=== PATIENT | female | born 1975 | race Two or more races ===

== ENCOUNTER 2018-04-15 20:03 | Emergency (ER) | payer MEDICAID ==
[~2018-04-15] VITALS: Ht 154.9 cm; Wt 78.9 kg
[2018-04-15 20:11] VITALS: BP 108/63
[2018-04-15] MEDS ORDERED: IBUPROFEN 600 MG TABLET PO ONE ×2 (21:25→21:30)
== END 2018-04-15 21:29 | disposition home or self-care (01) ==
LOC: ER 20:05
DX: H61.23 Impacted cerumen, bilateral (principal)
CPT/HCPCS: 69209; 99282; A4606; Z7610

== ENCOUNTER 2021-06-19 11:22 | Emergency (ER) | payer MEDICAID ==
[~2021-06-19] VITALS: Ht 157.5 cm; Wt 81.6 kg
--- NOTE | 2021-06-19 11:29 | NUR ---
BIB SELF C/O L SIDED HEADACHE X 3 DAYS. "ITS LIKE PULSATING"
[2021-06-19] MEDS ORDERED: KETOROLAC TROMETHAMINE 15 MG/ML VIAL ONE (11:50)
[2021-06-19] MEDS ORDERED: METOCLOPRAMIDE HCL 10 MG/2 ML VIAL ONE (11:50)
[2021-06-19] MEDS ORDERED: diphenhydrAMINE HCL 50 MG/ML VIAL ONE (11:50)
[2021-06-19] MEDS ORDERED: ACETAMINOPHEN ES 500 MG TABLET ONE (11:51)
[2021-06-19] MEDS ORDERED: ACETAMINOPHEN ES 500 MG TABLET PO ONE (12:00)
[2021-06-19] MEDS ORDERED: METOCLOPRAMIDE HCL 10 MG/2 ML VIAL IV ONE (12:00)
[2021-06-19] MEDS ORDERED: diphenhydrAMINE HCL 50 MG/ML VIAL IV ONE (12:00)
[2021-06-19] MEDS ORDERED: IV NS 0.9% 1,000 ML BAG IV ONE (12:00)
[2021-06-19] MEDS ORDERED: KETOROLAC TROMETHAMINE INJ 30 MG/ML VIAL IV ONE (12:00)
[2021-06-19] MEDS ORDERED: IBUP-1955 PO (13:58)
--- NOTE | 2021-06-19 14:05 | NUR ---
Patient discharged to home in stable condition. Written and verbal after care instructions given. Patient verbalizes understanding of instruction.IV removed. Catheter intact and site benign. Pressure and 4x4 applied to site. No bleeding noted.
[2021-06-19 14:07] VITALS: BP 123/67
== END 2021-06-19 14:07 | disposition home or self-care (01) ==
LOC: ER 11:29
DX: R51.9 Headache, unspecified (principal)
CPT/HCPCS: 96361; 96374; 96375; 99284; J1200; J1885; J2765; J7030

== ENCOUNTER 2023-02-09 12:15 | Emergency (ER) | payer MEDICAID ==
[~2023-02-09] VITALS: Ht 157.5 cm; Wt 83.0 kg
[~2023-02-09 12:15] MED LIST: IBUP-1955 PO
[2023-02-09 13:22] LABS: APPEARANCE,URINE SLIGHTLY CLOUDY (CLEAR); BILIRUBIN,URINE 1+ (NEGATIVE); BLOOD, URINE 3+ Ery/uL (NEGATIVE); COLOR,URINE DARK YELLOW (YELLOW); KETONES,URINE 1+ mg/dL (NEGATIVE); LEUKOCYTE ESTERASE ,URINE TRACE (NEGATIVE); NITRITE, URINE POSITIVE (NEGATIVE); PH,URINE 6.5 (5.0-8.0); PROTEIN,URINE 2+ mg/dl (NEGATIVE); UGLUCOSE TRACE mg/dL (NEGATIVE)
[2023-02-09] MEDS ORDERED: CIPR-262 PO (13:28)
[2023-02-09] MEDS ORDERED: IBUP-1957 PO (13:28)
[2023-02-09] MEDS ORDERED: NEOM10DR11 RIGHT EAR (13:28)
[2023-02-09 13:39] VITALS: BP 122/68; TEMP 98.3; O2SAT 100
[2023-02-09 13:52] LABS: ADD URINE CULTURE YES; BACTERIA,URINE 1+ /HPF (None Seen); MUCUS,URINE Moderate /LPF (None Seen)
== END 2023-02-09 13:40 | disposition home or self-care (01) ==
LOC: ER 12:21
DX: N39.0 Urinary tract infection, site not specified (principal); H61.21 Impacted cerumen, right ear
CPT/HCPCS: 81001

== ENCOUNTER 2024-04-28 12:47 | Emergency (ER) | payer MEDICAID ==
[~2024-04-28] VITALS: Ht 154.9 cm; Wt 81.6 kg
[~2024-04-28 12:47] MED LIST changes: +CIPR-262 PO; +IBUP-1957 PO; +NEOM10DR11 RIGHT EAR
[2024-04-28] MEDS ORDERED: KETOROLAC TROMETHAMINE 15 MG/ML VIAL ONE (14:30)
[2024-04-28] MEDS: IV NS 0.9% 1,000 ML BAG IV ONE (15:06)
[2024-04-28] MEDS: KETOROLAC TROMETHAMINE 15 MG/ML VIAL IV ONE (15:07)
[2024-04-28] MEDS ORDERED: ONDANSETRON HCL/PF 4 MG/2 ML VIAL ONE (15:32)
[2024-04-28] MEDS ORDERED: MORPHINE SULFATE INJ 4 MG/ML DISP.SYRIN ONE ×2 (15:32→18:10)
[2024-04-28 15:33] LABS: APPEARANCE,URINE Clear (CLEAR); BILIRUBIN,URINE SMALL (NEGATIVE); BLOOD, URINE Trace-intact Ery/uL (NEGATIVE); COLOR,URINE YELLOW (YELLOW); KETONES,URINE 15 mg/dL (NEGATIVE); LEUKOCYTE ESTERASE ,URINE Trace (NEGATIVE); NITRITE, URINE Negative (NEGATIVE); PROTEIN,URINE 30 mg/dl (NEGATIVE); UGLUCOSE Negative (NEGATIVE)
[2024-04-28] MEDS: MORPHINE SULFATE INJ 2 MG/ML DISP.SYRIN IV ONE ×2 (15:49→18:26)
[2024-04-28] MEDS: ONDANSETRON HCL/PF - ER 4 MG/2 ML VIAL IV ONE (15:50)
[2024-04-28 15:56] LABS: BASOPHILS % (AUTO) 0.2 % (0.0-2.0); EOSINOPHILS % (AUTO) 0.1 % (0.0-6.0); HEMATOCRIT 32 % (33-45); LYMPHOCYTES # (AUTO) 0.8 K/uL (0.8-4.8); LYMPHOCYTES % (AUTO) 7.4 % (20.0-44.0); MEAN CORPUSCULAR HEMOGLOBIN 24 PG (26.0-33.0); MEAN CORPUSCULAR HGB CONC 31 g/dl (31.0-36.0); MEAN CORPUSCULAR VOLUME 75 fL (82-100); MONOCYTES # (AUTO) 0.6 K/uL (0.1-1.30); MONOCYTES % (AUTO) 5.7 % (2.0-12.0); NEUTROPHILS # (AUTO) 9.8 K/uL (1.8-8.9); NEUTROPHILS % (AUTO) 86.6 % (43.0-81.0); PLATELET COUNT (AUTO) 273 K/uL (150-450); RED BLOOD CELL COUNT(AUTO) 4.25 MIL/uL (4.0-5.2); RED CELL DISTRIBUTION WIDTH 20.2 % (11.5-15.0); WHITE BLOOD COUNT (AUTO) 11.3 K/uL (4.3-11.0)
[2024-04-28 16:09] LABS: CALCIUM, SERUM 8.8 mg/dL (8.5-10.1); CREATININE 0.6 mg/dL (0.6-1.3); POTASSIUM 3.8 mmol/L (3.5-5.1)
[2024-04-28 16:17] LABS: LACTIC ACID 0.8 mmol/L (0.4-2.0)
[2024-04-28 16:24] LABS: ALBUMIN 3.6 g/dL (3.4-5.0); BILIRUBIN,DIRECT 0.1 mg/dL (0.0-0.2); BILIRUBIN,TOTAL 0.4 mg/dL (0.2-1.0); TOTAL PROTEIN, SERUM 6.8 g/dL (6.4-8.2)
[2024-04-28 16:24] LABS: BACTERIA,URINE Few /HPF (None Seen); SQUAMOUS EPITHELIAL CELL,UR Moderate /HPF (None Seen)
[2024-04-28 16:25] LABS: ADD URINE CULTURE YES
[2024-04-28] MEDS ORDERED: CT SWABBABLE VALVE TRANS SET 1 EA INFUS.SET MC ONE (17:09)
[2024-04-28] MEDS ORDERED: IOHEXOL-300 100 ML VIAL IV ONE (17:09)
[2024-04-28] MEDS ORDERED: IV NS 0.9% 250 ML IV ONE (17:10)
[2024-04-28] MEDS ORDERED: DOXYCYCLINE 100 MG VIAL ONE (18:09)
[2024-04-28] MEDS ORDERED: CEFEPIME 1 GM VIAL ONE (18:09)
[2024-04-28] MEDS ORDERED: METRONIDAZOLE 500MG/ NS 100ML 100 ML IV ONE (18:09)
[2024-04-28] MEDS ORDERED: DOXY100T2 PO (18:14)
[2024-04-28] MEDS ORDERED: METR-147 PO (18:14)
[2024-04-28] MEDS ORDERED: HYDR-3980 PO (18:14)
[2024-04-28] MEDS: FLAGYL/NS RTU 500 MG/100 ML PIGGYBACK IV ONE (18:25)
[2024-04-28] MEDS ORDERED: CEFEPIME 1 GM in IV D5W 50 ML IV ONE (18:30)
[2024-04-28] MEDS: CEFTRIAXONE 1 G VIAL IM ONE (18:48)
[2024-04-28] MEDS: DOXYCYCLINE 100 MG in IV D5W 100 ML IV ONE (19:08)
[2024-04-28 20:14] VITALS: BP 112/56; TEMP 98.2; O2SAT 97
== END 2024-04-28 20:16 | disposition home or self-care (01) ==
LOC: ER 12:51
DX: N39.0 Urinary tract infection, site not specified (principal); N70.11 Chronic salpingitis; R10.31 Right lower quadrant pain; R11.0 Nausea; Z79.1 Long term (current) use of non-steroidal anti-inflammatories (NSAID); Z87.19 Personal history of other diseases of the digestive system
CPT/HCPCS: 99285; 74177; 96365; 96375; 76856; 96367; 96361; 96376; 85025; 80048; 87086; 83605; 83690; 80076; 81001; 36415; 96372; J1885; J3490; J2270 ×2; J0696; J2405 ×2; J7060 ×2; J7030; J7050; J0692; Q9967; A4223